=== PATIENT | female | born 1960 | race Caucasian/White ===

== ENCOUNTER → 2021-01-30 | Outpatient (CLI) | payer OTHER ==
[~2021-01-30] MED LIST: OMNIPAQUE 350 MG/ML, 100ML BOTTLE ONE; OMNIPAQUE 350 MG/ML, 150 ML BOTTLE ONE
== END | disposition home or self-care (01) ==
LOC: CFH 10:29
PROVIDERS: ATTEND Physician Assistant Surgical
DX: N28.1 Cyst of kidney, acquired (principal); K82.0 Obstruction of gallbladder; M51.37 Other intervertebral disc degeneration, lumbosacral region; I82.402 Acute embolism and thrombosis of unspecified deep veins of left lower extremity
CPT/HCPCS: 74177; Q9967